=== PATIENT | male | born 2000 | race Caucasian/White ===

== ENCOUNTER 2019-10-25 22:30 | Emergency (ER) | payer SELFPAY ==
[~2019-10-25] VITALS: Ht 185.4 cm; Wt 104.0 kg
[2019-10-25] MEDS ORDERED: HALOPERIDOL LACTATE 5MG/ML VIAL IM ONE (22:45)
[2019-10-26 06:20] VITALS: BP 115/75
== END 2019-10-26 06:28 | disposition home or self-care (01) ==
LOC: ER 22:30
DX: F10.129 Alcohol abuse with intoxication, unspecified (principal); Y90.8 Blood alcohol level of 240 mg/100 ml or more
CPT/HCPCS: 36415; 80320; 96372; 99283; J1630; G0480